=== PATIENT | female | born 1990 | race Caucasian/White ===

== ENCOUNTER 2023-12-02 17:01 | Emergency (ER) | payer OTHER, SELFPAY ==
--- NOTE | ~2023-12-02 | XR_ITS ---
EXAMINATION: XR knee RT 3V DATE: 12/02/2023 17:38 INDICATION: Lateral right knee pain. TECHNIQUE: Anteroposterior, 2 oblique and crosstable lateral views of the right knee were obtained COMPARISON: None. FINDINGS: Alignment is normal. No fracture. There is at least mild joint space narrowing in the lateral compar tment with small marginal osteophytes although severity of joint space narrowing can be underestimate d on nonweightbearing imaging. There is subarticular lucencies along the anterior weightbearing later al femoral condyle which could represent degenerative subarticular cystlike change or osteochondral l esion. A few new small loose osteochondral bodies at the posterior recess of the joint space. No join t effusion/layering lipohemarthrosis. Soft tissues are unremarkable. IMPRESSION: 1. Interval progression of still mild osteoarthritis at the lateral compartment right knee but with n ew either subarticular degenerative cystlike change or osteochondral lesion along the anterior weight bearing lateral femoral condyle. Reviewed, dictated and finalized at location A. IMPRESSION: 1. Interval progression of still mild osteoarthritis at the lateral compartment right knee but with new either subarticular degenerative cystlike change or os teochondral lesion along the anterior weightbearing lateral femoral condyle.
[2023-12-02 17:08] VITALS: BP 112/78; PULSE 110; RESP 16; TEMP 36.4; O2SAT 99
--- NOTE | 2023-12-02 17:12 | ED.LOWEXIN ---
HPI - Extremity Injury (Lower) General Chief Complaint: Extremity Injury, Lower <Federico Villegas PTA - Last Filed: 12/02/23 17:13> Stated Complaint: R knee injury <Federico Villegas APRN - Last Filed: 12/02/23 17:13> Time Seen by Provider: 12/02/23 19:52 <Federico Villegas PTA - Last Filed: 12/02/23 17:13> Focused HPI: GENERAL: Well-appearing, well-nourished, and in no acute distress. HEAD: Normocephalic, atraumatic. CHEST: Clear to auscultation. No respiratory distress. HEART: Regular rate and rhythm. NEURO: Alert and oriented x3. Patient screened in triage and initial orders placed. Additional care and disposition to be based upon diagnostic testing and treatment. 33-year-old female presents emergency room for sudden onset right knee pain. Patient states that she misstepped causing her knee to twist. And describes the knee pain is a sharp stabbing pain that radiates up into her right hip. Patient has a history right knee meniscus tear with repair over 15 years ago. States pain is similar to when she ruptured her meniscus previously. Unable to ambulate due to the pain. Unable to extend her leg due to the pain. <Federico Villegas APRN - Last Filed: 12/02/23 17:13> History of Present Illness HPI Narrative: Agree with the above note. Patient's orthopedist this with [facility]. She states she used to take Mobic for her right knee pain but had discontinued this in 2020 after her pain at improved. She has not had issues since. <Es Turk PA-C - Last Filed: 12/02/23 21:45> Related Data Allergies/Adverse Reactions: Allergies Allergy/AdvReac Type Severity Reaction Status Date / Time No Known Allergies Allergy Unknown Unverified 10/24/15 04:41 <Federico Villegas APRN - Last Filed: 12/02/23 17:13> Review of Systems Review of Systems: All systems reviewed & are unremarkable except as noted in HPI and below <Es Turk PA-C - Last Filed: 12/02/23 21:45> Exam Narrative: GENERAL: Well-appearing, well-nourished, and in no acute distress. HEAD: Normocephalic, atraumatic. ENT: Nares clear, no rhinorrhea or epistaxis. Mucous membranes moist. NECK: Supple. CHEST: Clear to auscultation. No respiratory distress. HEART: Regular rate and rhythm. No murmur heard. Normal peripheral pulses. EXTREMITIES: RLE: Minimal tenderness to the lateral joint line. No erythema or edema. Negative anterior-posterior drawer. No laxity with varus or valgus stress. Limited active and passive extension secondary to pain, full active and passive flexion. DP pulse 2 +. Sensation intact. Dorsiflexion and plantar flexion 5/5. SKIN: Warm, dry, no rash. NEURO: No focal deficits. Alert and oriented x3 <Es Turk PA-C - Last Filed: 12/02/23 21:45> Course Vital Signs Vital signs: Vital Signs Temperature 97.6 F 12/02/23 17:08 Pulse Rate 110 H 12/02/23 17:08 Respiratory Rate 16 12/02/23 17:08 Blood Pressure 112/78 12/02/23 17:08 Pulse Oximetry 99 12/02/23 17:08 Temperature 97.6 F 12/02/23 17:08 Pulse Rate 110 H 12/02/23 17:08 Respiratory Rate 16 12/02/23 17:08 Blood Pressure 126/72 12/02/23 20:32 Pulse Oximetry 99 12/02/23 20:00 <Federico Villegas APRN - Last Filed: 12/02/23 17:13> Vital Signs Temperature 97.6 F 12/02/23 17:08 Pulse Rate 110 H 12/02/23 17:08 Respiratory Rate 16 12/02/23 17:08 Blood Pressure 112/78 12/02/23 17:08 Pulse Oximetry 99 12/02/23 17:08 Temperature 97.6 F 12/02/23 17:08 Pulse Rate 110 H 12/02/23 17:08 Respiratory Rate 16 12/02/23 17:08 Blood Pressure 126/72 12/02/23 20:32 Pulse Oximetry 99 12/02/23 20:00 <DELILAH Garner Last Filed: 12/02/23 21:45> MDM - Extremity Injury (Lower) MDM Narrative Medical decision making narrative: 33-year-old female with prior right meniscal injury emesis goes surgery several years ago presents to the emergency departm
[2023-12-02 19:52] VITALS: O2SAT 100
[2023-12-02 20:00] VITALS: O2SAT 99
[2023-12-02 20:32] VITALS: BP 126/72
--- NOTE | 2023-12-02 20:47 | PC.NURSE ---
maria esther olmstead notified this rn and ellis bustos that he is unable to place a knee immobilizer on the pt. per akash, please use aura wrap.
[2023-12-02 21:32] LABS: SPREG INTERNAL CONTROL Positive; Serum Qual hCG Negative
[2023-12-02 21:49] VITALS: BP 120/74; PULSE 97; RESP 15; O2SAT 100
== END 2023-12-02 21:50 | disposition home or self-care (01) ==
PROVIDERS: Emergency Provider Physician Assistant
DX: S89.91XA Unspecified injury of right lower leg, initial encounter (principal); M17.11 Unilateral primary osteoarthritis, right knee; X50.9XXA Other and unspecified overexertion or strenuous movements or postures, initial encounter
CPT/HCPCS: 36415; 73562; 84703; 99283